=== PATIENT | female | born 1965 ===

== ENCOUNTER 2020-08-28 12:18 | Emergency (ER) | payer BC, OTHER ==
[2020-08-28] MEDS: Lidocaine 1% with EPINEPHrine 1:100,000 50 ML MDV SUBCUT STA (13:00)
[2020-08-28] MEDS: LORazepam 2 MG/ML SDV IVPUSH ONE (13:20)
[2020-08-28] MEDS: Sodium Chloride 0.9% 1,000 ML IV SCH (13:20)
[2020-08-28] MEDS: LORazepam 2 MG/ML SDV ONE (13:41)
[2020-08-28] MEDS ORDERED: Sodium Chloride 0.9% 10 ML Syringe FLUSH PRN (13:42)
[2020-08-28 14:13] VITALS: BP 132/89; PULSE 77
[2020-08-28] MEDS: Bacitracin Oint 1 GM U/D Packet TOP ONE (14:29)
[2020-08-28] MEDS: Amoxicillin 500 MG Cap PO ONE (14:29)
--- NOTE | 2020-08-28 14:31 | EDM.PDOC ---
ED HPI GENERAL MEDICAL PROBLEM - General Chief Complaint: Laceration Stated Complaint: HAND LACERATION Time Seen by Provider: 08/28/20 12:30 Source of Information: Reports: Patient History Limitations: Reports: No Limitations - History of Present Illness INITIAL COMMENTS - FREE TEXT/NARRATIVE: patient presented to the ER with a laceration wound to the left wrist. She reports that she was putting some glass bottles away, when one of the them slipped and hit the counter and cut her wrist while she was trying to catch it. She applied pressure on it and called her daughter who brought her to the ER. not on blood thinners. Denies suicidal ideations or attempts - she reports it was an accident. Onset: Sudden Duration: Minutes: (45) Location: Reports: Lower Extremity, Left Quality: Reports: Sharp Severity: Moderate Improves with: Reports: None Worsens with: Reports: None Left Wrist Pain Score (Numeric/FACES): 4 - Related Data Allergies Allergy/AdvReac Type Severity Reaction Status Date / Time No Known Allergies Allergy Verified 08/28/20 14:13 Home Meds: Home Meds Propranolol [Inderal] 20 mg PO DAILY 06/24/19 [History] traZODone 100 mg PO DAILY 06/24/19 [History] Amoxicillin 500 mg PO BID #14 tab 08/28/20 [Rx] Past Medical History Cardiovascular History: Reports: Hypertension Psychiatric History: Reports: Anxiety - Past Surgical History Female Surgical History: Reports: Hysterectomy Social & Family History - Caffeine Use Caffeine Use: Reports: Coffee - Recreational Drug Use Recreational Drug Use: No ED ROS GENERAL - Review of Systems Review Of Systems: See Below Constitutional: Reports: No Symptoms HEENT: Reports: No Symptoms Respiratory: Reports: No Symptoms Cardiovascular: Reports: No Symptoms GI/Abdominal: Reports: No Symptoms Musculoskeletal: Reports: No Symptoms Neurological: Reports: No Symptoms Psychiatric: Reports: Anxiety ED EXAM, SKIN/RASH Exam: See Below Exam Limited By: No Limitations General Appearance: Alert, WD/WN, Anxious Eye Exam: Bilateral Eye: EOMI, PERRL Head: Atraumatic Respiratory/Chest: No Respiratory Distress, Lungs Clear Cardiovascular: Normal Peripheral Pulses, Regular Rate, Rhythm GI/Abdominal: Normal Bowel Sounds, Soft Skin: Other (there is 3 cm lacertion to the left wrist with active pulsating bleeding - propanly arterial.) ED SKIN PROCEDURES - Laceration/Wound Repair Left Distal Wrist Appearance: Linear, Clean Distal NVT: No Tendon Injury, Other (vascular bleed) Anesthetic Type: Local Local Anesthesia - Lidocaine (Xylocaine): 1% with EPI Local Anesthetic Volume: 5cc Exploration/Debridement/Repair: Wound Explored, Explored to Base Closed with: Sutures Lac/Wound length In cm: 3 Suture Size: 5-0 # of Sutures: 10 Suture Type: Prolene Suture Size: 5-0 # of Sutures: 3 Repaired with: Vicryl Sterile Dressing Applied: Provider Tetanus Status Addressed: Other Complications: No Course - Vital Signs Last Recorded V/S: Last Vital Signs Temp 36.6 C 08/28/20 12:20 Pulse 77 08/28/20 12:20 Resp 20 08/28/20 12:20 BP 132/89 08/28/20 12:20 Pulse Ox 98 08/28/20 12:20 - Orders/Labs/Meds Orders: Active Orders 24 hr Category Date Time Status Sodium Chloride 0.9% [Normal Saline] 1,000 ml Med 08/28/20 13:10 Active IV ASDIRECTED Medication Orders Sodium Chloride (Normal Saline) 1,000 mls @ 999 mls/hr IV ASDIRECTED QUANG Last Admin: 08/28/20 13:20 Dose: 999 mls/hr Documented by: FRANTZ Labs: Laboratory Tests 08/28/20 08/28/20 Range/Units 14:39 14:39 WBC 6.0 (4.0-11.0) K/uL RBC 4.53 (3.80-5.80) M/uL Hgb 14.4 (11.5-16.5) g/dL Hct 41.8 (37.0-47.0) % MCV 92 (76-96) fL MCH 31.8 (27.0-32.0) pg MCHC 34.4 (31.0-35.0) g/dL RDW 12.6 (11.0-16.0) % Plt Count 256 (150-500) K/uL MPV 10.5 H (6.0-10.0) fL Sodium 142 (136-145) mmol/L Potassium 4.5 (3.5-5.1) mmol/L Chloride 106 (98-107) mmol/L Carbon Dioxide 26.9 (21.0-32.0) mmol/L Anion Gap 13.6 (5.0-15.0) mmol/L BUN 15 (8-26) mg/dL Creatinine 0.77 (0.55-1.02) mg/dL Est Cr Clr Drug Dosing 85.26 mL/min Estimated GFR (MDRD) > 60 (>60) MLS/MIN BUN/Creatinine Ratio 19.5 (6-25) Glucose 112 H (74-100) mg/dL Calcium 8.9 (8.5-10.1) mg/dL Meds: Medications Generic Name Dose Route Start Last Admin Trade Name Freq PRN Reason Stop Dose Admin Sodium Chloride 1,000 mls @ 999 mls/hr 08/28/20 13:10 08/28/20 13:20 Normal Saline IV 999 mls/hr ASDIRECTED QUANG Administration Discontinued Medications Generic Name Dose Route Start Last Admin Trade Name Freq PRN Reason Stop Dose Admin Amoxicillin 500 mg 08/28/20 14:24 08/28/20 14:29 Amoxicillin 500 Mg Cap PO 08/28/20 14:25 500 mg ONETIME ONE Administration Bacitracin 1 dose 08/28/20 14:25 08/28/20 14:29 Bacitracin Oint 1 Gm U/D Packet TOP 08/28/20 14:26 1 dose ONETIME ONE Administration Lidocaine/Epinephrine 10 ml 08/28/20 14:25 08/28/20 13:00 Lidocaine 1% With Epinephrine 1:100,000 50 Ml Mdv SUBCUT 08/28/20 14:26 10 ml NOW STA Administration Lorazepam Confirm 08/28/20 13:26 08/28/20 13:41 Lorazepam 2 Mg/Ml Sdv Administered 08/28/20 13:27 Not Given Dose 2 mg .ROUTE .STK-MED ONE Lorazepam 1 mg 08/28/20 13:20 08/28/20 13:20 Lorazepam 2 Mg/Ml Sdv IVPUSH 08/28/20 13:21 1 mg ONETIME ONE Administration - Re-Assessments/Exams Free Text/Narrative Re-Assessment/Exam: wound was washed and cleaned a small arterial bleeding- not radial or ulnar- probably superior arch - didn't stop by pressure. Tourniquet was applied to the forearm to help reduce bleeding. wound was explored - figure of 8 suture - Vicryl was applied - to tie the bleeding vessel. Skin was closed using Ethilon vitals remained stable IVF was started labs were ordered to check Hgb level procedure was tolerated well 08/28/20 15:37 post procedure exam intact sensation to fingers - except a little numbness post to the wound - which was pre-existing upon arrival also intact distal capitally refill to finger nails - and good color. Departure - Departure Time of Disposition: 15:38 Disposition: Home, Self-Care 01 Condition: Good Clinical Impression: Laceration of skin of forearm Qualifiers: Encounter type: initial encounter Laterality: left Qualified Code(s): S51.812A - Laceration without foreign body of left forearm, initial encounter - Discharge Information *PRESCRIPTION DRUG MONITORING PROGRAM REVIEWED*: Not Applicable *COPY OF PRESCRIPTION DRUG MONITORING REPORT IN PATIENT ALEXANDRA: Not Applicable Prescriptions: Amoxicillin 500 mg PO BID #14 tab Instructions: Laceration Care, Adult, [id number], Sutures, Deniz, or Adhesive Wound Closure, [id number] Referrals: PCP,None [Primary Care Provider] - Forms: ED Department Discharge Additional Instructions: - return to the clinic after 10 days for sutures removal - leave dressing on for 2 days - then remove and apply antibiotics ointment once daily - Tylenol for pain as needed - watch for signs of wound infection - follow up with your PCP in 7-10 days for wound check Sepsis Event Note (ED) - Evaluation Sepsis Screening Result: No Definite Risk - Focused Exam Vital Signs: Vital Signs Temp Pulse Resp BP Pulse Ox 08/28/20 12:20 36.6 C 77 20 132/89 98 - Problem List & Annotations (1) Laceration of skin of forearm SNOMED Code(s): 987741617, 828792926 Code(s): S51.819A - LACERATION WITHOUT FOREIGN BODY OF UNSP FOREARM, INIT ENCNTR Status: Acute Priority: Medium Current Visit: Yes Qualifiers: Encounter type: initial encounter Laterality: left Qualified Code(s): S51.812A - Laceration without foreign body of left forearm, initial encounter - Problem List Review Problem List Initiated/Reviewed/Updated: Yes - My Orders Last 24 Hours: My Active Orders 08/28/20 13:10 Sodium Chloride 0.9% [Normal Saline] 1,000 ml IV ASDIRECTED - Assessment/Plan Last 24 Hours: My Active Orders 08/28/20 13:10 Sodium Chloride 0.9% [Normal Saline] 1,000 ml IV ASDIRECTED Plan: - return to the clinic after 10 days for sutures removal - leave dressing on for 2 days - then remove and apply antibiotics ointment once daily - Tylenol for pain as needed - watch for signs of wound infection - follow up with your PCP in 7-10 days for wound check
== END 2020-08-28 15:45 | disposition home or self-care (01) ==
LOC: LB.ED 12:18
DX: S51.812A Laceration without foreign body of left forearm, initial encounter (principal); S61.512A Laceration without foreign body of left wrist, initial encounter; I10 Essential (primary) hypertension; W25.XXXA Contact with sharp glass, initial encounter
CPT/HCPCS: 12002; 36415; 80048; 85027; 96374; 99283; A9270; J2060; J7030